=== PATIENT | male | born 1955 | race Caucasian/White ===

== ENCOUNTER 2017-02-09 10:25 | Emergency (ER) | payer BC ==
[2017-02-09 10:45] VITALS: BP 141/71
--- NOTE | 2017-02-09 11:22 | EDM.PDOC ---
ED HPI GENERAL MEDICAL PROBLEM - General Chief Complaint: Back Pain or Injury Stated Complaint: LEFT SIDE KIDNEY PAIN Time Seen by Provider: 02/09/17 10:50 Source of Information: Reports: Patient History Limitations: Reports: No Limitations - History of Present Illness INITIAL COMMENTS - FREE TEXT/NARRATIVE: 61-year-old male presents to the emergency room complaints of left upper quadrant radiating to his left flank. Patient reports pain started on Saturday. Notes that is more of a ache and will occasionally get sharp pain. It radiates to his left flank. Symptoms were recurring and would wax and wane. He had some mild nausea yesterday, denies vomiting. Denies any difficulties voiding or bowel movement. He is not had any dysuria, hematuria. No dark or bloody stools. States that he took an oxycodone last night that he had left over from his previous heart surgery bypass last year. He is not had any further problems and denies any chest pain,shortness of breath, palpitations, diaphoresis. 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 He has had a similar episode of this left upper quadrant and flank pain after his double bypass surgery 1 year ago. He has not had any recurrence. He feels at this left upper quadrant pain is worse that it is been compared to the past. He rates his pain a 5 out of 10. He is not requesting any pain medication which was offered for him. He is not currently having any nausea. He denies any fevers, but felt a little chilled yesterday. He denies feeling chilled today. Onset: Gradual Onset Date: 02/06/17 Duration: Getting Worse, Recurring Location: Reports: Abdomen, Radiates to (left flank) Quality: Reports: Ache Severity: Moderate Worsens with: Reports: None Associated Symptoms: Reports: Loss of Appetite, Nausea/Vomiting (denies vomiting , nausea yesterday). Denies: Chest Pain, Diaphoresis, Fever/Chills, Shortness of Breath, Weakness Treatments [employer]: Reports: Other (see below) (oxycodone) Left Back Pain Score (Numeric/FACES): 5 - Related Data Allergies Allergy/AdvReac Type Severity Reaction Status Date / Time No Known Drug Allergies Allergy Cannot Verified 02/09/17 10:38 Remember Home Meds: Home Meds Aspirin [Halfprin] 81 mg PO BEDTIME 10/18/14 [History] Escitalopram [Lexapro] 20 mg PO DAILY 10/18/14 [History] Gabapentin 100 mg PO BID 10/18/14 [History] Gabapentin 300 mg PO BEDTIME 10/18/14 [History] Insulin Aspart [NovoLOG] 13 unit SUBCUT TIDAC 10/18/14 [History] Insulin Glarg,Human.Rec.Analog [LantUS Solostar] 46 unit SUBCUT BEDTIME [History] Lisinopril 10 mg PO DAILY 10/18/14 [History] Lovastatin 20 mg PO BEDTIME 10/18/14 [History] Niacin [Niacin ER] 1,000 mg PO BEDTIME 10/18/14 [History] Niacin [Niacin ER] 500 mg PO DAILY 10/18/14 [History] Omeprazole 20 mg PO DAILY 10/18/14 [History] metFORMIN [Glucophage] 1,000 mg PO ACBREAKFAST 10/18/14 [History] metFORMIN [Glucophage] 1,500 mg PO ACDINNER 10/18/14 [History] Ferrous Sulfate [Iron] 325 mg PO BID 05/31/15 [History] Omeprazole 20 mg PO DAILY 05/31/15 [History] Metoprolol Tartrate 12.5 mg PO BID 02/09/17 [History] Past Medical History HEENT History: Reports: Impaired Vision Cardiovascular History: Reports: Bypass, High Cholesterol, Hypertension Gastrointestinal History: Reports: Colon Polyp Musculoskeletal History: Reports: Back Pain, Chronic, Fracture Other Musculoskeletal History: Collar bone fx, left foot fx. Psychiatric History: Reports: Depression Endocrine/Metabolic History: Reports: Diabetes, Type II Other Endocrine/Metabolic History: tumor removed from adreanal gland. Hematologic History: Reports: Anemia - Infectious Disease History Infectious Disease History: Reports: Chicken Pox, Measles, Mumps - Past Surgical History Cardiovascular Surgical History: Reports: Coronary Artery Bypass GI Surgical History: Reports: Cholecystectomy, Colonoscopy, Hernia Repair/Other Social & Family History - Family History Cardiac: Reports: [place] Oncologic: Reports: Liver - Tobacco Use Smoking Status *Q: Never Smoker Second Hand Smoke Exposure: Yes - Recreational Drug Use Recreational Drug Use: No ED ROS GENERAL - Review of Systems Review Of Systems: See Below Constitutional: Reports: Chills (last night), Decreased Appetite. Denies: Fever , Diaphoresis, Weight Loss HEENT: Reports: Other (corrective lenses) Respiratory: Denies: Shortness of Breath, Pleuritic Chest Pain, Sputum, Hemoptysis Cardiovascular: Reports: Edema (legs when standing on concrete at work). Denies : Chest Pain, Dyspnea on Exertion Endocrine: Reports: Other (denies hematuria) GI/Abdominal: Reports: Abdominal Pain, Anorexia, Nausea. Denies: Black Stool, Bloody Stool, Constipation, Diarrhea, Hematemesis, Stool Incontinence, Vomiting : Reports: Flank Pain. Denies: Dysuria, Hematuria, Incontinence, Urinary Retention Musculoskeletal: Denies: Shoulder Pain, Arm Pain, Back Pain, Leg Pain Skin: Denies: Cyanosis, Diaphoresis, Bruising, Pruritis, Rash Neurological: Denies: Confusion, Dizziness, Headache, Trouble Speaking, Difficulty Walking, Change in Speech, Gait Disturbance Hematologic/Lymphatic: Reports: No Symptoms Immunologic: Reports: No Symptoms ED EXAM, RENAL/ - Physical Exam Exam: See Below Exam Limited By: No Limitations General Appearance: Alert, WD/WN, No Apparent Distress, Obese (abdominal) Eye Exam: Bilateral Eye: EOMI Nose: Normal Inspection Throat/Mouth: Normal Inspection, Normal Lips, Normal Teeth, Normal Oropharynx, Normal Voice, No Airway Compromise Head: Atraumatic, Normocephalic Neck: Normal Inspection, Supple, Non-Tender, Full Range of Motion. No: Carotid Bruit, Lymphadenopathy (L), Lymphadenopathy (R) Respiratory/Chest: No Respiratory Distress, Lungs Clear, Normal Breath Sounds, No Accessory Muscle Use, Chest Non-Tender Cardiovascular: No Edema, No JVD, No Murmur, Irregularly Irregular GI/Abdominal: Normal Bowel Sounds, No Abnormal Bruit, No Mass, Pelvis Stable, Tender (Left Upper and lower Quadrant). No: Guarding, Rigid, Rebound, Hepatomegaly Back Exam: Normal Inspection, Full Range of Motion. No: Paraspinal Tenderness, Vertebral Tenderness Extremities: Normal Inspection, Normal Range of Motion, No Pedal Edema, Normal Capillary Refill Neurological: Alert, Oriented, Normal Cognition, No Motor/Sensory Deficits Psychiatric: Normal Affect, Normal Mood Skin Exam: Warm, Dry, Intact, Normal Color, No Rash Lymphatic: No Adenopathy EKG INTERPRETATION EKG Date: 02/09/17 Time: 13:17 Rhythm: Other (Sinus rhythm with marked sinus arrhythmia) Rate (Beats/Min): 64 QRS: Normal ST-T: Normal QT: Normal Comparison: Other: (sinus bradycardia with marked sinus arrhythmia) EKG Interpretation Comments: Sinus rhythm with marked sinus arrhythmia Inferior infarct, age undetermined Cannot rule out anterior infarct age undetermined Abnormal ECG Course - Vital Signs Last Recorded V/S: Last Vital Signs Temp 98.0 F 02/09/17 10:42 Pulse 61 02/09/17 10:42 Resp 20 02/09/17 10:42 BP 141/71 H 02/09/17 10:44 Pulse Ox 97 02/09/17 10:42 - Orders/Labs/Meds Orders: Active Orders 24 hr Category Date Time Status EKG Documentation Completion [RC] ASDIRECTED Care 02/09/17 12:08 Active Abdomen Pelvis w Cont [CT] Stat Exams 02/09/17 11:23 Taken Sodium Chloride 0.9% [Normal Saline] Med 02/09/17 12:45 Active 50 ml FLUSH ASDIRECTED EKG 12 Lead [EK] Routine Ther 02/09/17 12:07 Ordered Medication Orders Sodium Chloride (Normal Saline) 50 ml FLUSH ASDIRECTED MALENA Labs: Laboratory Tests 02/09/17 02/09/17 02/09/17 Range/Units 11:33 11:33 11:33 WBC 5.6 (5.0-10.0) 10^3/uL RBC 4.69 (4.50-6.00) 10^6/uL Hgb 14.8 (13.0-17.0) g/dL Hct 46.6 (40.0-52.0) % MCV 99.5 H (82.0-92.0) fL MCH 31.5 H (27.0-31.0) pg MCHC 31.7 L (32.0-36.0) g/dL RDW 12.8 (11.5-14.5) % Plt Count 186 (150-300) 10^3/uL MPV 7.1 L (7.4-10.4) fL Neut % (Auto) 69.6 (50.0-70.0) % Lymph % (Auto) 17.5 L (20.0-40.0) % [place] % (Auto) 8.4 H (2.0-8.0) % Eos % (Auto) 4.0 H (1.0-3.0) % Baso % (Auto) 0.5 (0.0-1.0) % Neut # (Auto) 3.9 (2.5-7.0) 10^3/uL Lymph # (Auto) 1.0 (1.0-4.0) 10^3/uL [place] # (Auto) 0.5 (0.1-0.8) 10^3/uL Eos # (Auto) 0.2 (0.1-0.3) 10^3/uL Baso # (Auto) 0.0 (0.0-0.1) 10^3/uL Sodium 138 (136-145) mmol/L Potassium 4.3 (3.3-5.3) mmol/L Chloride 102 (98-115) mmol/L Carbon Dioxide 25.6 (21.0-32.0) mmol/L BUN 16 (6-25) mg/dL Creatinine 0.98 (0.51-1.17) mg/dL Est Cr Clr Drug Dosing 79.16 mL/min Estimated GFR (MDRD) > 60 mL/min Glucose 148 H (70-110) mg/dL Calcium 9.2 (8.7-10.3) mg/dL Total Bilirubin 0.8 (0.2-1.0) mg/dL AST 20 (15-37) U/L ALT 27 (12-78) U/L Alkaline Phosphatase 66 (46-116) IU/L Troponin I < 0.04 (0.00-0.070) ng/mL Total Protein 8.1 (6.4-8.2) g/dL Albumin 3.67 (3.00-4.80) g/dL Amylase 53 (25-125) U/L Lipase 98 (73-393) U/L Specimen Type Urine Color (YELLOW) Urine Appearance (CLEAR) Urine pH (5.0-9.0) Ur Specific [place] (1.005-1.030) Urine Protein (NEGATIVE) mg/dL Urine Glucose (UA) (NEGATIVE) mg/dL Urine Ketones (NEGATIVE) mg/dL Urine Occult Blood (NEGATIVE) Urine Nitrite (NEGATIVE) Urine Bilirubin (NEGATIVE) Urine Urobilinogen (0.2-1.0) E.U./dL Ur Leukocyte Esterase (NEGATIVE) Urine RBC /HPF Urine WBC /HPF Ur Epithelial Cells /LPF Urine Bacteria (NONE TO FEW) /HPF Urine Mucus (NEGATIVE) /LPF 02/09/17 Range/Units 13:00 WBC (5.0-10.0) 10^3/uL RBC (4.50-6.00) 10^6/uL Hgb (13.0-17.0) g/dL Hct (40.0-52.0) % MCV (82.0-92.0) fL MCH (27.0-31.0) pg MCHC (32.0-36.0) g/dL RDW (11.5-14.5) % Plt Count (150-300) 10^3/uL MPV (7.4-10.4) fL Neut % (Auto) (50.0-70.0) % Lymph % (Auto) (20.0-40.0) % [place] % (Auto) (2.0-8.0) % Eos % (Auto) (1.0-3.0) % Baso % (Auto) (0.0-1.0) % Neut # (Auto) (2.5-7.0) 10^3/uL Lymph # (Auto) (1.0-4.0) 10^3/uL [place] # (Auto) (0.1-0.8) 10^3/uL Eos # (Auto) (0.1-0.3) 10^3/uL Baso # (Auto) (0.0-0.1) 10^3/uL Sodium (136-145) mmol/L Potassium (3.3-5.3) mmol/L Chloride (98-115) mmol/L Carbon Dioxide (21.0-32.0) mmol/L BUN (6-25) mg/dL Creatinine (0.51-1.17) mg/dL Est Cr Clr Drug Dosing mL/min Estimated GFR (MDRD) mL/min Glucose (70-110) mg/dL Calcium (8.7-10.3) mg/dL Total Bilirubin (0.2-1.0) mg/dL AST (15-37) U/L ALT (12-78) U/L Alkaline Phosphatase (46-116) IU/L Troponin I (0.00-0.070) ng/mL Total Protein (6.4-8.2) g/dL Albumin (3.00-4.80) g/dL Amylase (25-125) U/L Lipase (73-393) U/L Specimen Type Urincc Urine Color Yellow (YELLOW) Urine Appearance Clear (CLEAR) Urine pH 5.5 (5.0-9.0) Ur Specific [place] 1.015 (1.005-1.030) Urine Protein Negative (NEGATIVE) mg/dL Urine Glucose (UA) Negative (NEGATIVE) mg/dL Urine Ketones Trace H (NEGATIVE) mg/dL Urine Occult Blood Negative (NEGATIVE) Urine Nitrite Negative (NEGATIVE) Urine Bilirubin Negative (NEGATIVE) Urine Urobilinogen 0.2 (0.2-1.0) E.U./dL Ur Leukocyte Esterase Negative (NEGATIVE) Urine RBC 0-5 /HPF Urine WBC 0-5 /HPF Ur Epithelial Cells Rare /LPF Urine Bacteria Not seen (NONE TO FEW) /HPF Urine Mucus Rare H (NEGATIVE) /LPF Meds: Medications Generic Name Dose Route Start Last Admin Trade Name Freq PRN Reason Stop Dose Admin Sodium Chloride 50 ml 02/09/17 12:45 Normal Saline FLUSH ASDIRECTED MALENA Discontinued Medications Generic Name Dose Route Start Last Admin Trade Name Freq PRN Reason Stop Dose Admin Aspirin 324 mg 02/09/17 12:15 02/09/17 12:22 Aspirin PO 02/09/17 12:16 324 mg ONETIME ONE Administration Iopamidol 75 ml 02/09/17 12:38 Isovue-300 (61%) IV 02/09/17 12:39 ONETIME ONE - Re-Assessments/Exams Free Text/Narrative Re-Assessment/Exam: 02/09/17 13:54 Patient states that he feels much better his pain has improved. He now rates his pain mild rating it 3 out of 10. He is drinking water without any discomfort. Reports no nausea. No pain with ambulation. Departure - Departure Time of Disposition: 13:55 Disposition: Home, Self-Care 01 Condition: Good Clinical Impression: BPH (benign prostatic hyperplasia) Abdominal pain Qualifiers: Abdominal location: left upper quadrant Qualified Code(s): R10.12 - Left upper quadrant pain - Discharge Information Instructions: Benign Prostatic Hyperplasia, Abdominal Pain, Adult, [id number] Referrals: Aranza Henderson MD [Primary Care Provider] - Forms: ED Department Discharge Additional Instructions: 1. [place] diet. Avoid spicy, fatty foods. 2. Rest over the weekend 3. Continue with oral hydration. 4. Follow-up with Dr. Aranza Lora next week. - My Orders Last 24 Hours: My Active Orders 02/09/17 11:23 Abdomen Pelvis w Cont [CT] Stat 02/09/17 12:07 EKG 12 Lead [EK] Routine 02/09/17 12:08 EKG Documentation Completion [RC] ASDIRECTED 02/09/17 12:45 Sodium Chloride 0.9% [Normal Saline] 50 ml FLUSH ASDIRECTED - Assessment/Plan Last 24 Hours: My Active Orders 02/09/17 11:23 Abdomen Pelvis w Cont [CT] Stat 02/09/17 12:07 EKG 12 Lead [EK] Routine 02/09/17 12:08 EKG Documentation Completion [RC] ASDIRECTED 02/09/17 12:45 Sodium Chloride 0.9% [Normal Saline] 50 ml FLUSH ASDIRECTED Assessment:: 1. Abdominal pain 2. BPH Plan: 1. [place] diet. Avoid spicy, fatty foods. 2. Rest over the weekend 3. Continue with oral hydration. 4. Follow-up with Dr. Aranza Lora next week.
[2017-02-09 12:01] LABS: CHLORIDE,CL 102 mmol/L (98-115); SODIUM,NA 138 mmol/L (136-145)
[2017-02-09] MEDS ORDERED: Aspirin 81 MG Tab.Chew PO ONE (12:15)
[2017-02-09] MEDS ORDERED: Iopamidol 612 MG/ML 75 ML Bottle IV ONE (12:38)
[2017-02-09] MEDS ORDERED: Sodium Chloride 0.9% 50 ML SDV FLUSH SCH (12:45)
== END 2017-02-09 14:07 | disposition home or self-care (01) ==
LOC: KA.ED 10:25
DX: N40.0 Benign prostatic hyperplasia without lower urinary tract symptoms (principal); N32.89 Other specified disorders of bladder; R10.12 Left upper quadrant pain; I10 Essential (primary) hypertension; E78.00 Pure hypercholesterolemia, unspecified; E11.9 Type 2 diabetes mellitus without complications; Z79.4 Long term (current) use of insulin; Z79.82 Long term (current) use of aspirin; Z79.899 Other long term (current) drug therapy; Z90.49 Acquired absence of other specified parts of digestive tract; Z98.890 Other specified postprocedural states
CPT/HCPCS: 36415; 74177; 80053; 81001; 82150; 83690; 84484; 85025; 93005; 99284; A9270; Q9967

== ENCOUNTER 2018-12-09 08:24 | Day surgery (SDC) | payer BC ==
[2018-12-09] MEDS ORDERED: Sodium Chloride 0.9% 1,000 ML IV SCH (08:30)
[2018-12-09] MEDS ORDERED: Sodium Chloride 0.9% 10 ML Syringe FLUSH PRN (08:30)
[2018-12-09] MEDS ORDERED: Midazolam 1 MG/ML 2 ML SDV ONE (08:45)
[2018-12-09] MEDS ORDERED: Propofol 200 MG/20 ML SDV ONE ×2 (08:46→08:58)
[2018-12-09] MEDS ORDERED: Propofol 200 MG/20 ML SDV IV ONE (09:46)
[2018-12-09] MEDS ORDERED: Midazolam 1 MG/ML 2 ML SDV IV ONE (09:46)
--- NOTE | 2018-12-09 09:49 | PCM.PN ---
- General Info Date of Service: 12/09/18 Admission Dx/Problem (Free Text): Patient with history of colon polyps here for follow up colonoscopy. His last colonoscopy was 3 years ago. He notes occasional slight rectal bleeding although this is improved since he had hemorrhoid banding. He also notes mild symptoms of diarrhea associated with his diabetes. His recent history and physical is reviewed. No significant changes are noted compared to that evaluation. - Review of Systems Systems Review Comment:: I have discussed the proposed colonoscopy with the patient. Risks such as but not limited to bleeding and GI injury reviewed. He agrees to proceed. - Patient Data Vitals - Most Recent: Last Vital Signs Temp 97.7 F 12/09/18 08:30 Pulse 81 12/09/18 08:30 Resp 18 12/09/18 08:30 BP 135/89 12/09/18 08:30 Pulse Ox 98 12/09/18 08:30 Weight - Most Recent: 107.501 kg Med Orders - Current: Current Medications Sodium Chloride (Normal Saline) 1,000 mls @ 50 mls/hr IV ASDIRECTED MALENA Sodium Chloride (Saline Flush) 10 ml FLUSH Q8HR PRN PRN Reason: keep vein open - Exam General: Alert, Oriented Lungs: Clear to Auscultation Cardiovascular: Regular Rate, Regular Rhythm GI/Abdominal Exam: Soft - Problem List Review Problem List Initiated/Reviewed/Updated: Yes - My Orders Last 24 Hours: My Active Orders 12/08/18 14:11 Resuscitation Status Routine 12/09/18 08:30 Blood Glucose Check, Bedside [RC] BIDMEALS Peripheral IV Care [RC] . DIRECTED Vital Signs [RC] PER UNIT ROUTINE Sodium Chloride 0.9% [Normal Saline] 1,000 ml IV ASDIRECTED Sodium Chloride 0.9% [Saline Flush] 10 ml FLUSH Q8HR PRN Peripheral IV Insertion Adult [OM.PC] Routine 12/09/18 09:00 Patient to Empty Bladder [RC] ASDIRECTED 12/09/18 09:45 Verify Patient Consent Obtain [RC] ASDIRECTED 12/09/18 Breakfast Nothing Per Oral Diet [DIET] - Assessment Assessment:: History of colon polyps Diabetes History of coronary artery disease - Plan Plan:: Colonoscopy
--- NOTE | 2018-12-09 10:25 | PCM.OPNOTE ---
- General Post-Op/Procedure Note Date of Surgery/Procedure: 12/09/18 Operative Procedure(s): Colonoscopy Findings: Internal Hemorrhoids Pre Op Diagnosis: History of colon polyps Post-Op Diagnosis: Hemorrhoids Anesthesia Technique: MAC Primary Surgeon: Miller Phillips Pathology: none Output, Urine Amount: 0 EBL in mLs: 0 Complications: None Condition: Good
[2018-12-09 14:36] VITALS: BP 144/78; PULSE 70
--- NOTE | 2018-12-09 15:45 | OR ---
DATE OF SURGERY: 12/09/2018 SURGEON: Miller Phillips MD PREOPERATIVE DIAGNOSIS: History of colon polyps. POSTOPERATIVE DIAGNOSIS: Internal hemorrhoids. OPERATION PERFORMED: Colonoscopy. INDICATIONS FOR SURGERY: This 63-year-old male has a known history of colon polyps. He comes today for surveillance colonoscopy. FINDINGS: No polyps were seen on today's exam. The colon although tortuous otherwise appeared normal. The patient did have a moderate sized internal hemorrhoids although no active bleeding was seen today. PROCEDURE: The patient was taken to the operating room. He was given intravenous sedation and with him in the left lateral decubitus position, digital rectal exam was performed showing no rectal masses. The Olympus colonoscope was inserted into the rectum. Retroflexed examination of the rectal canal is performed. The scope was then carefully advanced under direct visualization through the entire length of the colon until the cecum was reached. The patient's colon was somewhat tortuous and reaching the cecum did require hand pressure as well as by rotating the patient to the supine position, but with careful persistent manipulation, the cecum is able to be reached and I clearly examined. Cecal identity is confirmed by noting normal internal cecal anatomy including the appendiceal orifice and ileocecal valve. After examining the cecum, the scope was slowly withdrawn, sequentially re-examining the colonic segments until the entire colon and rectum had been fully examined. The scope was removed and the patient was taken from the operating room in satisfactory condition. ESTIMATED BLOOD LOSS: Zero. COMPLICATIONS: None. PROGNOSIS: Good. /[id number]/MODL
== END 2018-12-09 11:40 | disposition home or self-care (01) ==
LOC: KA.SDS 08:24
PROVIDERS: ATTEND Surgery
DX: Z12.11 Encounter for screening for malignant neoplasm of colon (principal); K64.8 Other hemorrhoids; Q43.8 Other specified congenital malformations of intestine; K21.9 Gastro-esophageal reflux disease without esophagitis; I25.10 Atherosclerotic heart disease of native coronary artery without angina pectoris; E11.9 Type 2 diabetes mellitus without complications; E78.00 Pure hypercholesterolemia, unspecified; I10 Essential (primary) hypertension; F41.9 Anxiety disorder, unspecified; F32.9 Major depressive disorder, single episode, unspecified; Z86.010 Personal history of colon polyps; Z79.899 Other long term (current) drug therapy; Z79.82 Long term (current) use of aspirin; Z79.84 Long term (current) use of oral hypoglycemic drugs
CPT/HCPCS: 45378; 82962; J2250; J2704

== ENCOUNTER 2019-04-14 07:47 | Day surgery (SDC) | payer BC ==
[2019-04-14] MEDS ORDERED: Propofol 200 MG/20 ML SDV IV ONE (07:48)
[2019-04-14] MEDS ORDERED: Ketamine 200 MG/20 ML MDV IV ONE (07:48)
[2019-04-14] MEDS ORDERED: Lidocaine 2% 5 ML SDV IV ONE (07:48)
[2019-04-14] MEDS ORDERED: Midazolam 1 MG/ML 2 ML SDV IV ONE (07:48)
[2019-04-14] MEDS ORDERED: Sodium Chloride 0.9% 10 ML Syringe FLUSH PRN (08:00)
[2019-04-14] MEDS ORDERED: Sodium Chloride 0.9% 1,000 ML IV SCH (08:00)
[2019-04-14] MEDS ORDERED: Midazolam 1 MG/ML 2 ML SDV ONE (09:17)
[2019-04-14] MEDS ORDERED: Propofol 200 MG/20 ML SDV ONE (09:17)
[2019-04-14] MEDS ORDERED: Ketamine 200 MG/20 ML MDV ONE (09:18)
[2019-04-14] MEDS ORDERED: Lidocaine 2% 5 ML SDV ONE (09:18)
--- NOTE | 2019-04-14 09:31 | PCM.PN ---
- General Info Date of Service: 04/14/19 - Review of Systems Systems Review Comment:: 64 y/o male with symptoms of diarrhea, and upper abdominal pain despite taking Omeprazole here for EGD. He did have abnormal recent stress test but has been medically cleared for EGD. I have discussed the proposed EGD with the patient. He agrees to proceed accepting risks. - Patient Data Vitals - Most Recent: Last Vital Signs Temp 96.9 F 04/14/19 07:59 Pulse 64 04/14/19 07:59 Resp 18 04/14/19 07:59 BP 160/96 H 04/14/19 07:59 Pulse Ox 98 04/14/19 07:59 Weight - Most Recent: 105.233 kg Med Orders - Current: Current Medications Sodium Chloride (Normal Saline) 1,000 mls @ 50 mls/hr IV ASDIRECTED MALENA Last Admin: 04/14/19 08:21 Dose: 50 mls/hr Sodium Chloride (Saline Flush) 10 ml FLUSH Q8HR PRN PRN Reason: keep vein open Discontinued Medications Ketamine HCl (Ketalar) Confirm Administered Dose 200 mg .ROUTE .STK-MED ONE Stop: 04/14/19 09:19 Lidocaine (Xylocaine-Mpf 2%) Confirm Administered Dose 5 ml .ROUTE .STK-MED ONE Stop: 04/14/19 09:19 Midazolam HCl (Versed 1 Mg/Ml) Confirm Administered Dose 2 mg .ROUTE .STK-MED ONE Stop: 04/14/19 09:18 Propofol (Diprivan 20 Ml) Confirm Administered Dose 200 mg .ROUTE .STK-MED ONE Stop: 04/14/19 09:18 Sepsis Event Note - Focused Exam Vital Signs: Vital Signs Temp Pulse Resp BP Pulse Ox 04/14/19 07:59 96.9 F 64 18 160/96 H 98 Date Exam was Performed: 04/14/19 Time Exam was Performed: 09:29 - Problem List Review Problem List Initiated/Reviewed/Updated: Yes - My Orders Last 24 Hours: My Active Orders 04/13/19 14:54 Resuscitation Status Routine 04/14/19 08:00 Blood Glucose Check, Bedside [RC] UPON Patient to Empty Bladder [RC] ASDIRECTED Sodium Chloride 0.9% [Normal Saline] 1,000 ml IV ASDIRECTED Sodium Chloride 0.9% [Saline Flush] 10 ml FLUSH Q8HR PRN Peripheral IV Insertion Adult [OM.PC] Routine 04/14/19 09:00 Verify Patient Consent Obtain [RC] ASDIRECTED 04/14/19 Breakfast Nothing Per Oral Diet [DIET] - Assessment Assessment:: Diarrhea and abdominal pain - Plan Plan:: EGD
--- NOTE | 2019-04-14 10:00 | PCM.OPNOTE ---
- General Post-Op/Procedure Note Date of Surgery/Procedure: 04/14/19 Operative Procedure(s): EGD with Biopsy Findings: Mild inflammation at GE Jct Benign appearing polyps in gastric body Otherwise normal appearing gastric and duodenal mucosa Pre Op Diagnosis: Dairrhea. Abdominal pain Post-Op Diagnosis: Reflux esophagitis. Gastric polyps Anesthesia Technique: MAC Primary Surgeon: Miller Phillips Pathology: Biopsies of duodenum, stomach and esophagus EBL in mLs: 5 Complications: None Condition: Good
--- NOTE | 2019-04-14 11:06 | OR ---
DATE OF SURGERY: 04/14/2019 SURGEON: Miller Phillips MD PREOPERATIVE DIAGNOSIS: Diarrhea and history of abdominal pain. POSTOPERATIVE DIAGNOSIS: Reflux esophagitis and gastric polyps. OPERATION PERFORMED: Esophagogastroduodenoscopy with biopsy. INDICATIONS FOR SURGERY: This 64-year-old male has a history of several months of diarrhea. He has also had some abdominal pain. He is referred for diagnostic upper endoscopy. FINDINGS: No ulcers are seen on today's exam. The gastric mucosa does have a few benign-appearing polyps in the gastric body. Epigastric mucosa otherwise appears normal without visible signs of inflammation or other pathology. The Z- line is distinct with only mild irregularity approximately 40 cm from the incisors. There is mild inflammatory changes at the Z-line, but no exudate or severe inflammation is seen. The lining of the duodenum appears normal. DESCRIPTION OF PROCEDURE: The patient was taken to the operating room. He was given intravenous sedation and his throat is topically anesthetized. The patient was given intravenous sedation and with him in the left lateral decubitus position the gastroscope was advanced into the mouth through the mouth guard. The scope was then carefully advanced into the esophagus and on down through the stomach and duodenum to the 4th portion. Careful examination of the duodenum was carried out and no visible abnormalities were seen. Random biopsies of the of the duodenum are taken because of his history of diarrhea. The scope was withdrawn back into the stomach where full examination including retroflexed examination of the fundus was performed. Random biopsies of the antrum were taken to rule out H pylori. There were some benign-appearing polyps, most consistent with fundic gland polyps noted in the gastric body. Random biopsies of these were taken to confirm them being benign. The retroflexed examination of the fundus and GE junction was carefully examined. Biopsies of the GE junction were taken as well. The scope was then removed. Re- examining the esophagus during scope withdrawal and after the procedure was completed, the scope was removed and the patient was taken from the operating room in satisfactory condition. ESTIMATED BLOOD LOSS: 5 mL. COMPLICATIONS: None. PROGNOSIS: Good. /[id number]/MODL
[2019-04-14] MEDS ORDERED: Metoprolol Tartrate 25 MG Tab PO SCH (11:30)
[2019-04-14] MEDS ORDERED: Lisinopril 5 MG Tab PO SCH (11:30)
[2019-04-14] MEDS ORDERED: Metoprolol Tartrate 5 MG/5 ML SDV IVPUSH SCH (12:38)
[2019-04-14 13:01] VITALS: PULSE 68
[2019-04-14 13:27] VITALS: BP 160/96
== END 2019-04-14 14:16 | disposition home or self-care (01) ==
LOC: KA.SDS 07:47
PROVIDERS: ATTEND Surgery
DX: K31.7 Polyp of stomach and duodenum (principal); K21.0 Gastro-esophageal reflux disease with esophagitis; E11.42 Type 2 diabetes mellitus with diabetic polyneuropathy; I25.10 Atherosclerotic heart disease of native coronary artery without angina pectoris; G47.33 Obstructive sleep apnea (adult) (pediatric); F41.9 Anxiety disorder, unspecified; Z79.82 Long term (current) use of aspirin; Z79.4 Long term (current) use of insulin; Z79.899 Other long term (current) drug therapy; Z86.010 Personal history of colon polyps; Z87.11 Personal history of peptic ulcer disease; Z95.1 Presence of aortocoronary bypass graft; Z99.89 Dependence on other enabling machines and devices
CPT/HCPCS: 82962; A9270-GY; J2001; J2250; J2704; J3490; J7030

== ENCOUNTER 2020-02-05 12:41 | Emergency (ER) | payer BC ==
[2020-02-05] MEDS ORDERED: Sodium Chloride 0.9% 10 ML Syringe FLUSH PRN (12:47)
[2020-02-05] MEDS ORDERED: Sodium Chloride 0.9% 1,000 ML IV SCH ×2 (13:00→14:45)
--- NOTE | 2020-02-05 13:14 | EDM.PDOC ---
ED HPI GENERAL MEDICAL PROBLEM - General Chief Complaint: Gastrointestinal Problem Stated Complaint: COVID + Time Seen by Provider: 02/05/20 12:45 Source of Information: Reports: Patient - History of Present Illness INITIAL COMMENTS - FREE TEXT/NARRATIVE: Nelson, 64 yo male, arrives per pedis to ED Covid 19 positive test result yesterday, 03 February. Test performed Saturday. Increase of symptoms since Saturday. Claims mild symptoms over the past week. Has noted poor intake with variation in his taste and no appetite. Has had increased weakness, nausea, fatigue with dizziness and near syncope. Denies falling. Chest pressure with deep breathing, but no full onset of SOB. Minimal cough, no specific shortness of breath. Diarrhea with intake, positioning worsens the dizziness with near resolution when supine of both dizziness as well as his nausea. Onset: Today Duration: Getting Worse Location: Reports: Head, Chest Headache Pain Score (Numeric/FACES): 5 - Related Data Allergies Allergy/AdvReac Type Severity Reaction Status Date / Time No Known Drug Allergies Allergy Cannot Verified 02/05/20 13:27 Remember Home Meds: Home Meds Aspirin [Halfprin] 81 mg PO BID 10/18/14 [History] Escitalopram [Lexapro] 10 mg PO DAILY 10/18/14 [History] Gabapentin 300 mg PO TID 10/18/14 [History] Insulin Aspart [NovoLOG] 15 unit SUBCUT ASDIRECTED 10/18/14 [History] Lovastatin 20 mg PO BEDTIME 10/18/14 [History] Niacin [Niacin ER] 1,000 mg PO BEDTIME 10/18/14 [History] Niacin [Niacin ER] 500 mg PO DAILY 10/18/14 [History] Omeprazole 20 mg PO DAILY 10/18/14 [History] Ferrous Sulfate [Iron] 324 mg PO DAILY 05/31/15 [History] Metoprolol Tartrate 12.5 mg PO BID 02/09/17 [History] Acetaminophen [Tylenol] 650 mg PO Q4H PRN 12/05/18 [History] Insulin Degludec [Tresiba] 60 unit SQ DAILY 12/05/18 [History] ALPRAZolam [Alprazolam] 0.25 mg PO TID PRN 04/13/19 [History] Hydrocodone/Acetaminophen [Hydrocodone-Acetamin 5-325 mg] 1 tab PO Q6H PRN 04/13/19 [History] allopurinoL [Zyloprim] 300 mg PO DAILY 04/13/19 [History] lisinopriL [Zestril] 2.5 mg PO DAILY 04/13/19 [History] Isosorbide Mononitrate [Imdur] 30 mg PO DAILY 02/05/20 [History] Ondansetron [Ondansetron ODT] 8 mg PO Q6H PRN 5 Days #20 tab.rapdis 02/05/20 [Rx] buPROPion HCL [Bupropion Xl] 150 mg PO DAILY 02/05/20 [History] Past Medical History HEENT History: Reports: Impaired Vision Cardiovascular History: Reports: Bypass, CAD, High Cholesterol, Hypertension, PVD, SOB on Exertion Respiratory History: Reports: Sleep Apnea Gastrointestinal History: Reports: Colon Polyp, Hemorrhoids, Other (See Below) Other Gastrointestinal History: stomach ulcer. pre cancerous polyps removed Genitourinary History: Reports: BPH Musculoskeletal History: Reports: Back Pain, Chronic, Fracture, Gout Other Musculoskeletal History: Collar bone fx, left foot fx. 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 Hematologic History: Reports: Anemia Immunologic History: Reports: None Oncologic (Cancer) History: Reports: None Dermatologic History: Reports: None - Infectious Disease History Infectious Disease History: Reports: Chicken Pox, Measles, Mumps - Past Surgical History HEENT Surgical History: Reports: Oral Surgery Cardiovascular Surgical History: Reports: Coronary Artery Bypass, Vascular Surgery Respiratory Surgical History: Reports: None GI Surgical History: Reports: Cholecystectomy, Colonoscopy, EGD, Hernia Repair/Other Male Surgical History: Reports: Vasectomy Endocrine Surgical History: Reports: Adrenal Gland Other Endocrine Surgeries/Procedures: 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 ED EXAM, GENERAL - Physical Exam Exam: See Below Free Text/Narrative:: Alert, oriented, with mild pallor. HEENT is negative discharge or deformity, there is cerumen in the canals but tympanic membranes are visible and normal in appearance. [place] moist mucous membranes with no erythema nor exudate. PERRLA no icterus no injection extraocular motion intact. No nystagmus induced when placed from seated position to supine. Thorax is overall clear with fine rhonchi at the bases. No wheezes nor crackles are noted. Cardiac is S1-S2 I do not appreciate any murmur. Abdomen has normal active bowel sounds with no tenderness nor irritation to palpation. There is no organomegaly. Lower extremities are free of edema skin is warm and dry. Radial pulse correlates with apical heart rate. Seated positioning from supine does not have significant bearing on his heart rate with his arrival, but does worsen his nausea. #1 Interpretation EKG Date: 02/05/20 Time: 13:04 Rhythm: NSR Rate (Beats/Min): 86 [place]: Normal P-Wave: Present QRS: Normal ST-T: Normal QT: Normal Comparison: No Change Course - Vital Signs Last Recorded V/S: Last Vital Signs Temp 38.8 C H 02/05/20 16:14 Pulse 83 02/05/20 14:00 Resp 18 02/05/20 14:00 BP 165/88 H 02/05/20 14:00 Pulse Ox 100 02/05/20 14:00 - Orders/Labs/Meds Orders: Active Orders 24 hr Category Date Time Status EKG Documentation Completion [RC] ASDIRECTED Care 02/05/20 12:46 Active Peripheral IV Care [RC] . DIRECTED Care 02/05/20 12:47 Active Sodium Chloride 0.9% [Normal Saline] 1,000 ml Med 02/05/20 13:00 Active IV ASDIRECTED Sodium Chloride 0.9% [Normal Saline] 1,000 ml Med 02/05/20 14:45 Active IV ASDIRECTED Sodium Chloride 0.9% [Saline Flush] Med 02/05/20 12:47 Active 10 ml FLUSH Q8HR PRN Peripheral IV Insertion Adult [OM.PC] Routine Oth 02/05/20 12:47 Ordered EKG 12 Lead [EK] Urgent Ther 02/05/20 12:45 Ordered Medication Orders Sodium Chloride (Normal Saline) 1,000 mls @ 999 mls/hr IV ASDIRECTED MALENA Last Admin: 02/05/20 13:16 Dose: 999 mls/hr Documented by: PAULO Sodium Chloride (Normal Saline) 1,000 mls @ 999 mls/hr IV ASDIRECTED MALENA Last Admin: 02/05/20 14:46 Dose: 999 mls/hr Documented by: PAULO Sodium Chloride (Saline Flush) 10 ml FLUSH Q8HR PRN PRN Reason: keep vein open Labs: Laboratory Tests 02/05/20 02/05/20 02/05/20 Range/Units 13:20 13:20 13:20 WBC 5.70 (5.00-10.00) 10^3/uL RBC 4.73 (4.50-6.00) 10^6/uL Hgb 15.5 (13.0-17.0) g/dL Hct 45.4 (40.0-52.0) % MCV 96.0 H (82.0-92.0) fL MCH 32.8 H (27.0-31.0) pg MCHC 34.1 (32.0-36.0) g/dL RDW 12.3 (11.5-14.5) % Plt Count 135 L (150-400) 10^3/uL MPV 9.4 (7.4-10.4) fL Immature Gran % (Auto) 0.2 (0.0-5.0) % Neut % (Auto) 74.8 H (50.0-70.0) % Lymph % (Auto) 15.3 L (20.0-40.0) % [place] % (Auto) 9.5 H (2.0-8.0) % Eos % (Auto) 0.0 L (1.0-3.0) % Baso % (Auto) 0.2 (0.0-1.0) % Neut # (Auto) 4.27 (2.50-7.00) 10^3/uL Lymph # (Auto) 0.87 L (1.00-4.00) 10^3/uL [place] # (Auto) 0.54 (0.10-0.80) 10^3/uL Eos # (Auto) 0.00 L (0.10-0.30) 10^3/uL Baso # (Auto) 0.01 (0.00-0.10) 10^3/uL Immature Gran # (Auto) 0.01 (0.00-0.50) 10^3/uL D-Dimer, Quantitative (<400) ng/mL Sodium 133 L (136-145) mmol/L Potassium 4.2 (3.3-5.3) mmol/L Chloride 95 L (98-115) mmol/L Carbon Dioxide 25.1 (21.0-32.0) mmol/L Anion Gap 17.1 H (5-15) mmol/L BUN 26 H (6-25) mg/dL Creatinine 1.32 H (0.51-1.17) mg/dL Est Cr Clr Drug Dosing 56.54 mL/min Estimated GFR (MDRD) 55 mL/min Glucose 158 H (75 - 99) mg/dL Lactic Acid 1.9 (0.4-2.0) mmol/L Calcium 8.5 L D (8.7-10.3) mg/dL Total Bilirubin 0.5 (0.2-1.0) mg/dL AST 27 (15-37) U/L ALT 24 (12-78) U/L Alkaline Phosphatase 69 (46-116) IU/L Troponin I < 0.04 (0.00-0.070) ng/mL Total Protein 7.5 (6.4-8.2) g/dL Albumin 3.51 (3.00-4.80) g/dL 02/05/20 Range/Units 13:20 WBC (5.00-10.00) 10^3/uL RBC (4.50-6.00) 10^6/uL Hgb (13.0-17.0) g/dL Hct (40.0-52.0) % MCV (82.0-92.0) fL MCH (27.0-31.0) pg MCHC (32.0-36.0) g/dL RDW (11.5-14.5) % Plt Count (150-400) 10^3/uL MPV (7.4-10.4) fL Immature Gran % (Auto) (0.0-5.0) % Neut % (Auto) (50.0-70.0) % Lymph % (Auto) (20.0-40.0) % [place] % (Auto) (2.0-8.0) % Eos % (Auto) (1.0-3.0) % Baso % (Auto) (0.0-1.0) % Neut # (Auto) (2.50-7.00) 10^3/uL Lymph # (Auto) (1.00-4.00) 10^3/uL [place] # (Auto) (0.10-0.80) 10^3/uL Eos # (Auto) (0.10-0.30) 10^3/uL Baso # (Auto) (0.00-0.10) 10^3/uL Immature Gran # (Auto) (0.00-0.50) 10^3/uL D-Dimer, Quantitative < 100 (<400) ng/mL Sodium (136-145) mmol/L Potassium (3.3-5.3) mmol/L Chloride (98-115) mmol/L Carbon Dioxide (21.0-32.0) mmol/L Anion Gap (5-15) mmol/L BUN (6-25) mg/dL Creatinine (0.51-1.17) mg/dL Est Cr Clr Drug Dosing mL/min Estimated GFR (MDRD) mL/min Glucose (75 - 99) mg/dL Lactic Acid (0.4-2.0) mmol/L Calcium (8.7-10.3) mg/dL Total Bilirubin (0.2-1.0) mg/dL AST (15-37) U/L ALT (12-78) U/L Alkaline Phosphatase (46-116) IU/L Troponin I (0.00-0.070) ng/mL Total Protein (6.4-8.2) g/dL Albumin (3.00-4.80) g/dL Meds: Medications Generic Name Dose Route Start Last Admin Trade Name Freq PRN Reason Stop Dose Admin Sodium Chloride 1,000 mls @ 999 mls/hr 02/05/20 13:00 02/05/20 13:16 Normal Saline IV 999 mls/hr ASDIRECTED MALENA Administration Sodium Chloride 1,000 mls @ 999 mls/hr 02/05/20 14:45 02/05/20 14:46 Normal Saline IV 999 mls/hr ASDIRECTED MALENA Administration Sodium Chloride 10 ml 02/05/20 12:47 Saline Flush FLUSH Q8HR PRN keep vein open Discontinued Medications Generic Name Dose Route Start Last Admin Trade Name Hilda PRN Reason Stop Dose Admin Acetaminophen 1,000 mg 02/05/20 16:08 02/05/20 16:14 Tylenol Extra Strength PO 02/05/20 16:09 1,000 mg ONETIME ONE Administration Acetaminophen Confirm 02/05/20 16:09 Tylenol Extra Strength Administered 02/05/20 16:10 Dose 1,000 mg .ROUTE .STK-MED ONE Ondansetron HCl 4 mg 02/05/20 13:15 02/05/20 13:50 Zofran IVPUSH 02/05/20 13:16 4 mg ONETIME ONE Administration - Radiology Interpretation Free Text/Narrative:: X-ray is consistent with viral pneumonia with no acute infiltrate noted. - Re-Assessments/Exams Free Text/Narrative Re-Assessment/Exam: 02/05/20 14:45 Feels slightly improved laying supine, with 1 L of fluid infused at this time. Advised with laboratory findings we would infuse second liter of fluid as tolerated, and would attempt to ambulate thereafter. Free Text/Narrative Re-Assessment/Exam: 02/05/20 16:16 Feels mild improvement, orthostatic vitals show 139/84 with a pulse of 89 supine. 131/82 with a pulse of 93 in a seated position. 148/77 with a pulse of 99 in a standing position, denying dizziness, mild nausea with motion upright. Departure - Departure Time of Disposition: 16:21 Disposition: Home, Self-Care 01 Condition: Fair Clinical Impression: COVID-19 virus detected, Diarrhea due to COVID-19, Diabetes 1.5, managed as type 2, Hyponatremia, Hypochloremia, Creatinine elevation - Discharge Information *PRESCRIPTION DRUG MONITORING PROGRAM REVIEWED*: Not Applicable *COPY OF PRESCRIPTION DRUG MONITORING REPORT IN PATIENT LONNIE: Not Applicable Prescriptions: Ondansetron [Ondansetron ODT] 8 mg PO Q6H PRN 5 Days #20 tab.rapdis PRN Reason: Nausea Instructions: Nausea and Vomiting, Adult, [id number], Diarrhea, Adult, [id number], Prevent the Spread of COVID-19 if You Are Sick - [facility] Referrals: Aranza Henderson MD [Primary Care Provider] - Forms: ED Department Discharge Additional Instructions: Go home, rest, encourage fluids predominantly water or low sugar, low carbohydrate drinks. Prescription at [facility] pharmacy for the Zofran for nausea as needed You need to take it easy, avoid overexerting yourself. Continue all your medications as directed. In the event you develop a fever greater than 103 that does not improve/resolve with Tylenol, consideration for reevaluation could be given. Your laboratory analysis as well as x-ray show that this is still a viral component with no evidence of bacterial infection and it will take time to run its course. Recheck as needed. Sepsis Event Note (ED) - Focused Exam Vital Signs: Vital Signs Temp Temp Pulse Resp BP Pulse Ox 02/05/20 16:14 38.8 C H 02/05/20 14:00 38.6 C H 83 18 165/88 H 100 02/05/20 13:59 167/93 H 02/05/20 13:35 146/66 H 02/05/20 12:46 37.4 C 92 18 125/80 100 - Problem List & Annotations (1) COVID-19 virus detected SNOMED Code(s): 3982594572884437 Code(s): U07.1 - COVID-19 Status: Acute Priority: High Current Visit: Yes (2) Hyponatremia SNOMED Code(s): 29127090 Code(s): E87.1 - HYPO-OSMOLALITY AND HYPONATREMIA Status: Acute Priority: High Current Visit: Yes (3) Hypochloremia SNOMED Code(s): 68329789 Code(s): E87.8 - OTH DISORDERS OF ELECTROLYTE AND FLUID BALANCE, NEC Status: Acute Priority: High Current Visit: Yes (4) Nausea SNOMED Code(s): 690824800 Code(s): R11.0 - NAUSEA Status: Acute Priority: Medium Current Visit: Yes (5) Diarrhea due to COVID-19 SNOMED Code(s): 270070980 Code(s): U07.1 - COVID-19; A08.39 - OTHER VIRAL ENTERITIS Status: Acute Priority: Medium Current Visit: Yes (6) Diabetes 1.5, managed as type 2 SNOMED Code(s): 740860564 Code(s): E13.9 - OTHER SPECIFIED DIABETES MELLITUS WITHOUT COMPLICATIONS Status: Chronic Priority: Medium Current Visit: Yes (7) Creatinine elevation SNOMED Code(s): 999331787 Code(s): R79.89 - OTHER SPECIFIED ABNORMAL FINDINGS OF BLOOD CHEMISTRY Status: Chronic Priority: Medium Current Visit: No - Problem List Review Problem List Initiated/Reviewed/Updated: Yes - My Orders Last 24 Hours: My Active Orders 02/05/20 12:45 EKG 12 Lead [EK] Urgent 02/05/20 12:46 EKG Documentation Completion [RC] ASDIRECTED 02/05/20 12:47 Peripheral IV Care [RC] . DIRECTED Sodium Chloride 0.9% [Saline Flush] 10 ml FLUSH Q8HR PRN Peripheral IV Insertion Adult [OM.PC] Routine 02/05/20 13:00 Sodium Chloride 0.9% [Normal Saline] 1,000 ml IV ASDIRECTED 02/05/20 14:45 Sodium Chloride 0.9% [Normal Saline] 1,000 ml IV ASDIRECTED - Assessment/Plan Last 24 Hours: My Active Orders 02/05/20 12:45 EKG 12 Lead [EK] Urgent 02/05/20 12:46 EKG Documentation Completion [RC] ASDIRECTED 02/05/20 12:47 Peripheral IV Care [RC] . DIRECTED Sodium Chloride 0.9% [Saline Flush] 10 ml FLUSH Q8HR PRN Peripheral IV Insertion Adult [OM.PC] Routine 02/05/20 13:00 Sodium Chloride 0.9% [Normal Saline] 1,000 ml IV ASDIRECTED 02/05/20 14:45 Sodium Chloride 0.9% [Normal Saline] 1,000 ml IV ASDIRECTED Plan: Go home, rest, encourage fluids predominantly water or low sugar, low carbohydrate drinks. Prescription at [facility] pharmacy for the Zofran for nausea as needed You need to take it easy, avoid overexerting yourself. Continue all your medications as directed. In the event you develop a fever greater than 103 that does not improve/resolve with Tylenol, consideration for reevaluation could be given. Your laboratory analysis as well as x-ray show that this is still a viral component with no evidence of bacterial infection and it will take time to run its course. Recheck as needed.
[2020-02-05] MEDS ORDERED: Ondansetron 4 MG/2 ML SDV IVPUSH ONE (13:15)
--- NOTE | 2020-02-05 13:48 | CR ---
[id number] RAD/RAD Chest PA or AP 1V EXAM: SINGLE VIEW CHEST. INDICATION: VIRAL INFECTION COMPARISON: CORRELATION IS MADE WITH NOVEMBER 10, 2015 FINDINGS: There is borderline edema There is no sana infiltrate. The cardiac silhouette is stable IMPRESSION: BORDERLINE EDEMA Francis Kowalski MD 02/05/20 8500 Thank you for allowing us to participate in the care of your patient.
[2020-02-05 14:01] VITALS: PULSE 83
[2020-02-05 14:15] LABS: ANION GAP 17.1 mmol/L (5-15); CHLORIDE,CL 95 mmol/L (98-115); SODIUM,NA 133 mmol/L (136-145)
[2020-02-05] MEDS ORDERED: Acetaminophen 500 MG Tab PO ONE (16:08)
[2020-02-05] MEDS ORDERED: Acetaminophen 500 MG Tab ONE (16:09)
[2020-02-05 16:20] VITALS: BP 139/84
== END 2020-02-05 16:21 | disposition home or self-care (01) ==
LOC: KA.ED 12:41
DX: U07.1 COVID-19 (principal); E13.40 Other specified diabetes mellitus with diabetic neuropathy, unspecified; E87.1 Hypo-osmolality and hyponatremia; E87.8 Other disorders of electrolyte and fluid balance, not elsewhere classified; R74.8 Abnormal levels of other serum enzymes; I10 Essential (primary) hypertension; I25.10 Atherosclerotic heart disease of native coronary artery without angina pectoris; E78.00 Pure hypercholesterolemia, unspecified; M10.9 Gout, unspecified; F41.9 Anxiety disorder, unspecified; F32.9 Major depressive disorder, single episode, unspecified; D64.9 Anemia, unspecified; E66.9 Obesity, unspecified; Z68.35 Body mass index [BMI] 35.0-35.9, adult; Z79.4 Long term (current) use of insulin; Z79.899 Other long term (current) drug therapy
CPT/HCPCS: 36415; 71045; 80053; 83605; 84484; 85025; 85379; 93005; 96374; 99284; 99284-25; A9270-GY; J2405; J7030

== ENCOUNTER 2020-02-08 09:06 | Emergency (ER) | payer BC ==
[2020-02-08 09:13] VITALS: BP 122/68; PULSE 87
--- NOTE | 2020-02-08 09:19 | EDM.PDOC ---
ED HPI GENERAL MEDICAL PROBLEM - General Chief Complaint: General Stated Complaint: FEVER/COUGH/WEAKNESS Time Seen by Provider: 02/08/20 09:10 Source of Information: Reports: Patient - History of Present Illness INITIAL COMMENTS - FREE TEXT/NARRATIVE: Eamon, 64-year-old male, who is noted to be CPAP dependent with multiple comorbidities, presents via ambulance with worsening shortness of breath. Testing obtained on the january with positive results the . He is known to be Covid positive and was seen in the emergency department last Saturday where he received 2 L of IV fluid normal saline and was discharged home. He states over the weekend he has progressively worsened with weakness as well as breathing difficulty. He has been unable to monitor his glucose readings over the weekend but was 108 this morning upon ambulance arrival. There is noted worsening her oxygen saturation being in the low 80 range when he was home on room air and was placed on 10 L nonrebreather and at this time is in the low to mid 90s. He denies any pain but notes difficulty in respirations. He is unsure of the status of his temperature over the past few days but has felt warm with chills at times. Experiencing some constipation at this time as he has not had a bowel movement for 2 days, but also has noted that he has not been eating and drinking his normal consumption. - Related Data Allergies Allergy/AdvReac Type Severity Reaction Status Date / Time No Known Drug Allergies Allergy Cannot Verified 02/05/20 13:27 Remember Home Meds: Home Meds Aspirin [Halfprin] 81 mg PO BID 10/18/14 [History] Escitalopram [Lexapro] 10 mg PO DAILY 10/18/14 [History] Gabapentin 300 mg PO TID 10/18/14 [History] Insulin Aspart [NovoLOG] 15 unit SUBCUT ASDIRECTED 10/18/14 [History] Lovastatin 20 mg PO BEDTIME 10/18/14 [History] Niacin [Niacin ER] 1,000 mg PO BEDTIME 10/18/14 [History] Niacin [Niacin ER] 500 mg PO DAILY 10/18/14 [History] Omeprazole 20 mg PO DAILY 10/18/14 [History] Ferrous Sulfate [Iron] 324 mg PO DAILY 05/31/15 [History] Metoprolol Tartrate 12.5 mg PO BID 02/09/17 [History] Acetaminophen [Tylenol] 650 mg PO Q4H PRN 12/05/18 [History] Insulin Degludec [Tresiba] 60 unit SQ DAILY 12/05/18 [History] ALPRAZolam [Alprazolam] 0.25 mg PO TID PRN 04/13/19 [History] Hydrocodone/Acetaminophen [Hydrocodone-Acetamin 5-325 mg] 1 tab PO Q6H PRN 04/13/19 [History] allopurinoL [Zyloprim] 300 mg PO DAILY 04/13/19 [History] lisinopriL [Zestril] 2.5 mg PO DAILY 04/13/19 [History] Isosorbide Mononitrate [Imdur] 30 mg PO DAILY 02/05/20 [History] Ondansetron [Ondansetron ODT] 8 mg PO Q6H PRN 5 Days #20 tab.rapdis 02/05/20 [Rx] buPROPion HCL [Bupropion Xl] 150 mg PO DAILY 02/05/20 [History] Past Medical History HEENT History: Reports: Impaired Vision Cardiovascular History: Reports: Bypass, CAD, High Cholesterol, Hypertension, PVD, SOB on Exertion Respiratory History: Reports: Sleep Apnea Other Respiratory History: CPAP Gastrointestinal History: Reports: Colon Polyp, Hemorrhoids, Other (See Below) Other Gastrointestinal History: stomach ulcer. pre cancerous polyps removed Genitourinary History: Reports: BPH Musculoskeletal History: Reports: Back Pain, Chronic, Fracture, Gout Other Musculoskeletal History: Collar bone fx, left foot fx. 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 Hematologic History: Reports: Anemia Immunologic History: Reports: None Oncologic (Cancer) History: Reports: None Dermatologic History: Reports: None - Infectious Disease History Infectious Disease History: Reports: Chicken Pox, Measles, Mumps - Past Surgical History HEENT Surgical History: Reports: Oral Surgery Cardiovascular Surgical History: Reports: Coronary Artery Bypass, Vascular Surgery Respiratory Surgical History: Reports: None GI Surgical History: Reports: Cholecystectomy, Colonoscopy, EGD, Hernia Repair/Other Male Surgical History: Reports: Vasectomy Endocrine Surgical History: Reports: Adrenal Gland Other Endocrine Surgeries/Procedures: 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 ED EXAM, GENERAL - Physical Exam Exam: See Below Free Text/Narrative:: Alert, oriented with no cyanosis, mild pallor. HEENT is negative discharge or deformity with no noted tenderness. PERRLA with no icterus nor injection. Ocean moist mucous membranes with no erythema. Neck is soft and supple with no lymphadenopathy, no rigidity. Thorax is mildly diminished with scattered rhonchi. Cardiac is S1-S2 regular rate with apical rate correlating with radial pulses. Abdomen is rotund soft, bowel sounds present, no tenderness, no organomegaly appreciated. rectal is deferred. Lower extremities are free of edema capillary refill less than 3 seconds distally. #1 Interpretation EKG Date: 02/08/20 Time: 10:06 Rhythm: NSR Rate (Beats/Min): 83 [place]: LAD-Left [place] Deviation P-Wave: Present ST-T: Depressed QT: Prolonged Comparison: Change From Previous EKG Course - Vital Signs Last Recorded V/S: Last Vital Signs Temp 37.3 C 02/08/20 09:11 Pulse 87 02/08/20 09:11 Resp 28 H 02/08/20 09:11 BP 122/68 02/08/20 09:11 Pulse Ox 92 L 02/08/20 09:11 - Orders/Labs/Meds Orders: Active Orders 24 hr Category Date Time Status EKG Documentation Completion [RC] ASDIRECTED Care 02/08/20 09:21 Active Chest 1V Frontal [CR] Stat Exams 02/08/20 09:20 Ordered Sodium Chloride 0.9% [Normal Saline] 1,000 ml Med 02/08/20 10:30 Active IV ASDIRECTED EKG 12 Lead [EK] Urgent Ther 02/08/20 09:20 Ordered Medication Orders Sodium Chloride (Normal Saline) 1,000 mls @ 150 mls/hr IV ASDIRECTED MALENA Labs: Laboratory Tests 02/08/20 02/08/20 02/08/20 Range/Units 09:00 09:00 09:00 WBC (5.00-10.00) 10^3/uL RBC (4.50-6.00) 10^6/uL Hgb (13.0-17.0) g/dL Hct (40.0-52.0) % MCV (82.0-92.0) fL MCH (27.0-31.0) pg MCHC (32.0-36.0) g/dL RDW (11.5-14.5) % Plt Count (150-400) 10^3/uL MPV (7.4-10.4) fL Add Manual Diff Neutrophils % (Manual) (50-70) % Band Neutrophils % (4-12) % Lymphocytes % (Manual) (20-40) % Absolute Neutrophils Band Neutrophils # Lymphocytes # (Manual) D-Dimer, Quantitative 372 (<400) ng/mL Sodium 128 L (136-145) mmol/L Potassium 3.8 (3.3-5.3) mmol/L Chloride 94 L (98-115) mmol/L Carbon Dioxide 19.9 L (21.0-32.0) mmol/L Anion Gap 17.9 H (5-15) mmol/L BUN 22 (6-25) mg/dL Creatinine 1.12 (0.51-1.17) mg/dL Est Cr Clr Drug Dosing 66.63 mL/min Estimated GFR (MDRD) > 60 mL/min Glucose 111 H (75 - 99) mg/dL Lactic Acid 1.8 (0.4-2.0) mmol/L Calcium 8.4 L (8.7-10.3) mg/dL Total Bilirubin 0.5 (0.2-1.0) mg/dL AST 48 H (15-37) U/L ALT 22 (12-78) U/L Alkaline Phosphatase 60 (46-116) IU/L Troponin I < 0.04 (0.00-0.070) ng/mL Total Protein 7.2 (6.4-8.2) g/dL Albumin 2.84 L (3.00-4.80) g/dL 02/08/20 Range/Units 09:42 WBC 7.77 (5.00-10.00) 10^3/uL RBC 4.24 L (4.50-6.00) 10^6/uL Hgb 13.9 D (13.0-17.0) g/dL Hct 40.5 (40.0-52.0) % MCV 95.5 H (82.0-92.0) fL MCH 32.8 H (27.0-31.0) pg MCHC 34.3 (32.0-36.0) g/dL RDW 12.6 (11.5-14.5) % Plt Count 119 L (150-400) 10^3/uL MPV 10.0 (7.4-10.4) fL Add Manual Diff Yes Neutrophils % (Manual) 94 H (50-70) % Band Neutrophils % 2 L (4-12) % Lymphocytes % (Manual) 4 L (20-40) % Absolute Neutrophils 7.30 Band Neutrophils # 0.16 Lymphocytes # (Manual) 0.31 D-Dimer, Quantitative (<400) ng/mL Sodium (136-145) mmol/L Potassium (3.3-5.3) mmol/L Chloride (98-115) mmol/L Carbon Dioxide (21.0-32.0) mmol/L Anion Gap (5-15) mmol/L BUN (6-25) mg/dL Creatinine (0.51-1.17) mg/dL Est Cr Clr Drug Dosing mL/min Estimated GFR (MDRD) mL/min Glucose (75 - 99) mg/dL Lactic Acid (0.4-2.0) mmol/L Calcium (8.7-10.3) mg/dL Total Bilirubin (0.2-1.0) mg/dL AST (15-37) U/L ALT (12-78) U/L Alkaline Phosphatase (46-116) IU/L Troponin I (0.00-0.070) ng/mL Total Protein (6.4-8.2) g/dL Albumin (3.00-4.80) g/dL Meds: Medications Generic Name Dose Route Start Last Admin Trade Name Freq PRN Reason Stop Dose Admin Sodium Chloride 1,000 mls @ 150 mls/hr 02/08/20 10:30 Normal Saline IV ASDIRECTED MALENA Discontinued Medications Generic Name Dose Route Start Last Admin Trade Name Freq PRN Reason Stop Dose Admin Sodium Chloride 1,000 mls @ 999 mls/hr 02/08/20 09:20 11/16/20 09:20 Normal Saline IV 02/08/20 10:20 999 mls/hr .BOLUS ONE Administration - Radiology Interpretation Free Text/Narrative:: Opacities groundglass with sternal wires in EKG leads present. Cardiac silhouette upper limits with no recognizable acute CHF. Over read pending Departure - Departure Time of Disposition: 10:39 Disposition: DC/Tfer to [facility] Condition: Fair Clinical Impression: COVID-19 virus detected, Hyponatremia, Hypochloremia, Acute hypoxemic respiratory failure due to COVID-19 - Discharge Information *PRESCRIPTION DRUG MONITORING PROGRAM REVIEWED*: Not Applicable *COPY OF PRESCRIPTION DRUG MONITORING REPORT IN PATIENT LONNIE: Not Applicable Referrals: Aranza Henderson MD [Primary Care Provider] - Forms: ED Department Discharge, Interfacility Transfer [facility] Sepsis Event Note (ED) - Evaluation Sepsis Screening Result: Possible Sepsis Risk - Focused Exam Vital Signs: Vital Signs Temp Pulse Resp BP Pulse Ox 02/08/20 09:11 37.3 C 87 28 H 122/68 92 L ED Communication - ED Communication Date/Time Date: 02/08/20 Time Called: 10:38 - Discussed Case With (1) Discussed Case With (1): Admitting Provider (Dr. [facility] excepting to the emergency department) Person/s Notified (1): Sue Henderson Time Called: 10:35 - Conversation Summary Admitting Provider Agreed to Patient's Admission: Yes Cloth Tearer Accepted Inpatient Consultation: Yes - Problem List & Annotations (1) Acute hypoxemic respiratory failure due to COVID-19 SNOMED Code(s): 257067610 Code(s): U07.1 - COVID-19; J96.01 - ACUTE RESPIRATORY FAILURE WITH HYPOXIA Status: Acute Priority: High Current Visit: Yes (2) COVID-19 virus detected SNOMED Code(s): 2043366543760412 Code(s): U07.1 - COVID-19 Status: Acute Priority: High Current Visit: Yes (3) Diabetes 1.5, managed as type 2 SNOMED Code(s): 454826349 Code(s): E13.9 - OTHER SPECIFIED DIABETES MELLITUS WITHOUT COMPLICATIONS Status: Chronic Priority: High Current Visit: Yes (4) Hyponatremia SNOMED Code(s): 51344821 Code(s): E87.1 - HYPO-OSMOLALITY AND HYPONATREMIA Status: Chronic Priority: High Current Visit: Yes (5) Hypochloremia SNOMED Code(s): 01401454 Code(s): E87.8 - OTH DISORDERS OF ELECTROLYTE AND FLUID BALANCE, NEC Status: Chronic Priority: High Current Visit: Yes - Problem List Review Problem List Initiated/Reviewed/Updated: Yes - My Orders Last 24 Hours: My Active Orders 02/08/20 09:20 Chest 1V Frontal [CR] Stat EKG 12 Lead [EK] Urgent 02/08/20 09:21 EKG Documentation Completion [RC] ASDIRECTED 02/08/20 10:30 Sodium Chloride 0.9% [Normal Saline] 1,000 ml IV ASDIRECTED - Assessment/Plan Last 24 Hours: My Active Orders 02/08/20 09:20 Chest 1V Frontal [CR] Stat EKG 12 Lead [EK] Urgent 02/08/20 09:21 EKG Documentation Completion [RC] ASDIRECTED 02/08/20 10:30 Sodium Chloride 0.9% [Normal Saline] 1,000 ml IV ASDIRECTED Plan: Will be transferred via [facility] ambulance to [facility] emergency department.
[2020-02-08] MEDS: Sodium Chloride 0.9% 1,000 ML IV ONE (09:20)
[2020-02-08 10:01] LABS: ANION GAP 17.9 mmol/L (5-15); CHLORIDE,CL 94 mmol/L (98-115); SODIUM,NA 128 mmol/L (136-145)
[2020-02-08] MEDS: Sodium Chloride 0.9% 1,000 ML IV SCH (10:34)
--- NOTE | 2020-02-08 10:41 | CR ---
[id number] RAD/RAD Chest PA or AP 1V EXAM: RAD Chest PA or AP 1V INDICATION: COVID DESAT. COMPARISON: February 05, 2020. DISCUSSION: Median sternotomy wires. Cardiomediastinal silhouette is stable in size and contour. Again identified are patchy pulmonary infiltrates bilaterally, most pronounced in the left lung base. Central pulmonary vascular congestion. IMPRESSION: Patchy pulmonary infiltrates bilaterally, most pronounced at the left lung base. Overall these findings are not significantly changed when compared to the prior study. Deon Waters DO 02/08/20 1039 Thank you for allowing us to participate in the care of your patient.
== END 2020-02-08 11:15 ==
LOC: KA.ED 09:06
DX: U07.1 COVID-19 (principal); J96.01 Acute respiratory failure with hypoxia; E87.1 Hypo-osmolality and hyponatremia; E87.8 Other disorders of electrolyte and fluid balance, not elsewhere classified; I10 Essential (primary) hypertension; E78.00 Pure hypercholesterolemia, unspecified; E66.9 Obesity, unspecified; F41.9 Anxiety disorder, unspecified; F32.9 Major depressive disorder, single episode, unspecified; E11.40 Type 2 diabetes mellitus with diabetic neuropathy, unspecified; Z79.82 Long term (current) use of aspirin; Z79.4 Long term (current) use of insulin; Z79.899 Other long term (current) drug therapy; Z90.49 Acquired absence of other specified parts of digestive tract
CPT/HCPCS: 36415; 71045; 80053; 83605; 84484; 85025; 85379; 93005; 99284; 99285-25; J7030

== ENCOUNTER 2022-12-18 08:48 | Day surgery (SDC) | payer BC ==
[2022-12-18] MEDS ORDERED: Sodium Chloride 0.9% 1,000 ML IV SCH (09:00)
[2022-12-18] MEDS ORDERED: Sodium Chloride 0.9% 10 ML Syringe FLUSH PRN (09:00)
[2022-12-18] MEDS ORDERED: Midazolam 1 MG/ML 2 ML SDV ONE (09:51)
[2022-12-18] MEDS ORDERED: Propofol 200 MG/20 ML SDV ONE (09:51)
[2022-12-18 10:20] VITALS: PULSE 68
[2022-12-18 14:44] VITALS: BP 100/59
== END 2022-12-18 13:22 | disposition home or self-care (01) ==
LOC: KA.SDS 08:48
PROVIDERS: ATTEND Surgery
DX: Z12.11 Encounter for screening for malignant neoplasm of colon (principal); I25.10 Atherosclerotic heart disease of native coronary artery without angina pectoris; E11.9 Type 2 diabetes mellitus without complications; I10 Essential (primary) hypertension; Z86.010 Personal history of colon polyps
CPT/HCPCS: 00812; 45378; J2250; J2704; J7030

== ENCOUNTER 2023-01-15 07:44 | Day surgery (SDC) | payer BC ==
[2023-01-15] MEDS ORDERED: Propofol 200 MG/20 ML SDV IV ONE (07:45)
[2023-01-15] MEDS ORDERED: Sodium Chloride 0.9% 1,000 ML IV SCH (08:00)
[2023-01-15] MEDS ORDERED: Sodium Chloride 0.9% 10 ML Syringe FLUSH PRN (08:00)
[2023-01-15] MEDS ORDERED: Midazolam 1 MG/ML 2 ML SDV ONE (08:55)
[2023-01-15] MEDS ORDERED: Propofol 200 MG/20 ML SDV ONE ×2 (08:55→09:40)
[2023-01-15] MEDS ORDERED: Sodium Chloride 0.9% 1,000 ML ONE (09:42)
[2023-01-15 11:20] VITALS: BP 151/81; PULSE 57
== END 2023-01-15 11:34 | disposition home or self-care (01) ==
LOC: KA.SDS 07:44
PROVIDERS: ATTEND Surgery
DX: K62.89 Other specified diseases of anus and rectum (principal); K64.8 Other hemorrhoids; Q43.8 Other specified congenital malformations of intestine; F41.9 Anxiety disorder, unspecified; N40.0 Benign prostatic hyperplasia without lower urinary tract symptoms; I25.10 Atherosclerotic heart disease of native coronary artery without angina pectoris; G47.33 Obstructive sleep apnea (adult) (pediatric); E11.40 Type 2 diabetes mellitus with diabetic neuropathy, unspecified; F32.A Depression, unspecified; K21.9 Gastro-esophageal reflux disease without esophagitis; M10.9 Gout, unspecified; E78.00 Pure hypercholesterolemia, unspecified; Z86.010 Personal history of colon polyps; Z79.82 Long term (current) use of aspirin; Z79.4 Long term (current) use of insulin; Z79.02 Long term (current) use of antithrombotics/antiplatelets; Z79.899 Other long term (current) drug therapy; Z79.85 Long-term (current) use of injectable non-insulin antidiabetic drugs
CPT/HCPCS: 00811; 82947; J2250; J2704; J7030

== ENCOUNTER 2023-11-28 14:19 | Emergency (ER) | payer BC ==
[2023-11-28 14:49] VITALS: BP 125/77; PULSE 62
[2023-11-28 14:54] LABS: BASOPHILS ABSOLUTE AUTO 0.03 10^3/uL (0.00-0.10); BASOPHILS PERCENT AUTO 0.4 % (0.0-1.0); EOSINOPHILS ABSOLUTE AUTO 0.34 10^3/uL (0.10-0.30); EOSINOPHILS PERCENT AUTO 4.7 % (1.0-3.0); HEMATOCRIT 45.8 % (40.0-52.0); HEMOGLOBIN 15.7 g/dL (13.0-17.0); IMMATURE GRAN ABSOLUTE AUTO 0.01 10^3/uL (0.00-0.50); IMMATURE GRAN PERCENT AUTO 0.1 % (0.0-5.0); LYMPHOCYTES ABSOLUTE AUTO 1.24 10^3/uL (1.00-4.00); MEAN CORPUSCULAR HEMOGLOBIN 33.4 pg (27.0-31.0); MEAN CORPUSCULAR HGB CONC 34.3 g/dL (32.0-36.0); MEAN CORPUSCULAR VOLUME 97.4 fL (82.0-92.0); MEAN PLATELET VOLUME 9.2 fL (7.4-10.4); MONOCYTES ABSOLUTE AUTO 0.73 10^3/uL (0.10-0.80); NEUTROPHILS ABSOLUTE AUTO 4.94 10^3/uL (2.50-7.00); NEUTROPHILS PERCENT AUTO 67.8 % (50.0-70.0); PLATELET COUNT,PLT 176 10^3/uL (150-400); RED CELL DISTRIBUTION WIDTH 14.7 % (11.5-14.5); WHITE BLOOD CELL COUNT,WBC 7.29 10^3/uL (5.00-10.00)
[2023-11-28] MEDS: Sodium Chloride 0.9% 1,000 ML IV ONE (15:03)
[2023-11-28] MEDS: Ondansetron 4 MG/2 ML SDV IVPUSH ONE (15:04)
[2023-11-28 15:10] LABS: ALBUMIN 3.47 g/dL (3.40-5.00); ANION GAP 13.1 mmol/L (5-15); BILIRUBIN TOTAL 0.7 mg/dL (0.2-1.0); CALCIUM 8.9 mg/dL (8.7-10.3); CARBON DIOXIDE,CO2 28.1 mmol/L (21.0-32.0); CREATININE 1.41 mg/dL (0.51-1.17); EST CRCL DRUG DOSING (CG) 50.14 mL/min; POTASSIUM,K 4.2 mmol/L (3.5-5.1); PROTEIN TOTAL,TP 7.4 g/dL (6.4-8.2)
== END 2023-11-28 18:00 | disposition home or self-care (01) ==
LOC: KA.ED 14:19
DX: E11.649 Type 2 diabetes mellitus with hypoglycemia without coma (principal); R06.00 Dyspnea, unspecified; U09.9 Post COVID-19 condition, unspecified; I25.10 Atherosclerotic heart disease of native coronary artery without angina pectoris; E78.00 Pure hypercholesterolemia, unspecified; I10 Essential (primary) hypertension; E11.42 Type 2 diabetes mellitus with diabetic polyneuropathy; E66.9 Obesity, unspecified; Z79.4 Long term (current) use of insulin; Z79.899 Other long term (current) drug therapy
CPT/HCPCS: 36415; 70450; 71045; 80053; 82947; 83880; 84484; 85025; 93005; 93010; 96361; 96374; 99284; 99285-25; J2405; J7030

== ENCOUNTER 2024-08-12 13:07 | Inpatient (IN) | payer BC, MEDICARE ==
[2024-08-12] MEDS ORDERED: Sodium Chloride 0.9% 10 ML Syringe FLUSH PRN (13:42)
[2024-08-12 13:46] LABS: BASOPHILS ABSOLUTE AUTO 0.04 10^3/uL (0.00-0.10); BASOPHILS PERCENT AUTO 0.5 % (0.0-1.0); EOSINOPHILS ABSOLUTE AUTO 0.28 10^3/uL (0.10-0.30); EOSINOPHILS PERCENT AUTO 3.6 % (1.0-3.0); HEMATOCRIT 46.7 % (40.0-52.0); HEMOGLOBIN 15.8 g/dL (13.0-17.0); IMMATURE GRAN ABSOLUTE AUTO 0.02 10^3/uL (0.00-0.04); IMMATURE GRAN PERCENT AUTO 0.3 % (0.0-0.4); MEAN CORPUSCULAR HEMOGLOBIN 33.3 pg (27.0-31.0); MEAN CORPUSCULAR HGB CONC 33.8 g/dL (32.0-36.0); MEAN CORPUSCULAR VOLUME 98.5 fL (82.0-92.0); MEAN PLATELET VOLUME 9.4 fL (7.4-10.4); MONOCYTES ABSOLUTE AUTO 0.66 10^3/uL (0.10-0.80); MONOCYTES PERCENT AUTO 8.6 % (2.0-8.0); PLATELET COUNT,PLT 166 10^3/uL (150-400); RED BLOOD CELL COUNT 4.74 10^6/uL (4.50-6.00); RED CELL DISTRIBUTION WIDTH 14.3 % (11.5-14.5)
[2024-08-12] MEDS: Sodium Chloride 0.9% 1,000 ML IV ONE (13:56)
[2024-08-12 14:04] LABS: ALBUMIN 3.48 g/dL (3.40-5.00); ANION GAP 13.7 mmol/L (5-15); BILIRUBIN TOTAL 0.7 mg/dL (0.2-1.0); CARBON DIOXIDE,CO2 25.7 mmol/L (21.0-32.0); CREATININE 1.34 mg/dL (0.51-1.17); EST CRCL DRUG DOSING (CG) 52.03 mL/min; POTASSIUM,K 4.4 mmol/L (3.5-5.1); PROTEIN TOTAL,TP 7.4 g/dL (6.4-8.2)
[2024-08-12] MEDS: Albuterol/Ipratropium 3.0-0.5 MG/3 ML Neb Soln NEB ONE (14:27)
[2024-08-12] MEDS ORDERED: Sodium Chloride 0.9% 100 ML IV SCH (16:30)
[2024-08-12] MEDS: methylPREDNISolone Sodium Succinate 40 MG/1 ML SDV IVPUSH ONE (16:37)
[2024-08-12] MEDS: Azithromycin 500 MG in Sodium Chloride 0.9% 250 ML IV SCH (16:38)
[2024-08-12] MEDS ORDERED: Nitroglycerin 0.4 MG Tab.SL SL PRN (17:06)
[2024-08-12] MEDS ORDERED: ALPRAZolam 0.25 MG Tab PO PRN (17:06)
[2024-08-12] MEDS ORDERED: Acetaminophen 325 MG Tab PO PRN (17:06)
[2024-08-12] MEDS ORDERED: Polyethylene Glycol 3350 Powder 17 GM Packet PO PRN (17:06)
[2024-08-12] MEDS ORDERED: Cyclobenzaprine 10 MG Tab PO PRN (17:06)
[2024-08-12] MEDS ORDERED: Glucose Gel 15 GM in 37.5 GM Tube PO PRN (17:10)
[2024-08-12] MEDS ORDERED: 50% Dextrose in Water 50 ML Syringe IVPUSH PRN (17:10)
[2024-08-12] MEDS ORDERED: Glucagon,Human Recombinant 1 MG Vial IM PRN (17:10)
[2024-08-12] MEDS: Isosorbide Mononitrate 30 MG Tab.ER PO SCH (18:03)
[2024-08-12] MEDS: Insulin Lispro 100 Unit/ML 3 ML KwikPen SUBCUT SCH (18:04)
[2024-08-12] MEDS: Gabapentin 300 MG Cap PO SCH (21:23)
[2024-08-12] MEDS: atorvaSTATin 10 MG Tab PO SCH (21:23)
[2024-08-12] MEDS: Metoprolol Succinate 50 MG Tab.ER PO SCH (21:24)
[2024-08-12] MEDS: Diclofenac Sodium 1% Gel 100 GM Tube TOP SCH (21:28)
[2024-08-12] MEDS: INSULIN DEGLUDEC 200 UNIT/ML SUBCUT SCH (21:28)
[2024-08-12] MEDS: RANOLAZINE 1000 MG PO SCH (21:41)
[2024-08-13] MEDS: Omeprazole 20 MG Cap.CR PO SCH (06:08)
[2024-08-13 07:04] LABS: BASOPHILS ABSOLUTE AUTO 0.01 10^3/uL (0.00-0.10); BASOPHILS PERCENT AUTO 0.1 % (0.0-1.0); HEMATOCRIT 48.2 % (40.0-52.0); HEMOGLOBIN 16.1 g/dL (13.0-17.0); IMMATURE GRAN ABSOLUTE AUTO 0.02 10^3/uL (0.00-0.04); IMMATURE GRAN PERCENT AUTO 0.2 % (0.0-0.4); LYMPHOCYTES PERCENT AUTO 6.3 % (20.0-40.0); MEAN CORPUSCULAR HGB CONC 33.4 g/dL (32.0-36.0); MEAN CORPUSCULAR VOLUME 98.8 fL (82.0-92.0); MEAN PLATELET VOLUME 9.3 fL (7.4-10.4); MONOCYTES PERCENT AUTO 2.1 % (2.0-8.0); NEUTROPHILS ABSOLUTE AUTO 8.67 10^3/uL (2.50-7.00); NEUTROPHILS PERCENT AUTO 91.3 % (50.0-70.0); PLATELET COUNT,PLT 171 10^3/uL (150-400); RED BLOOD CELL COUNT 4.88 10^6/uL (4.50-6.00); RED CELL DISTRIBUTION WIDTH 14.3 % (11.5-14.5)
[2024-08-13 07:20] LABS: ALBUMIN 3.03 g/dL (3.40-5.00); ANION GAP 12.2 mmol/L (5-15); BILIRUBIN TOTAL 0.5 mg/dL (0.2-1.0); CALCIUM 8.8 mg/dL (8.7-10.3); CARBON DIOXIDE,CO2 27.9 mmol/L (21.0-32.0); CREATININE 1.26 mg/dL (0.51-1.17); EST CRCL DRUG DOSING (CG) 55.33 mL/min; POTASSIUM,K 5.1 mmol/L (3.5-5.1); PROTEIN TOTAL,TP 6.9 g/dL (6.4-8.2)
[2024-08-13] MEDS: Escitalopram 10 MG Tab PO SCH (07:59)
[2024-08-13] MEDS: Sennosides/Docusate Sodium 50-8.6 MG Tab PO SCH (07:59)
[2024-08-13] MEDS: Allopurinol 100 MG Tab PO SCH (07:59)
[2024-08-13] MEDS: Empagliflozin [Jardiance] 25 MG Tablet *PT OWN MED PO SCH (07:59)
[2024-08-13] MEDS: Aspirin 81 MG Tab.EC PO SCH (07:59)
[2024-08-13] MEDS: methylPREDNISolone Sodium Succinate 40 MG/1 ML SDV IVPUSH SCH (07:59)
[2024-08-13] MEDS: Clopidogrel 75 MG Tab PO SCH (08:00)
[2024-08-13] MEDS ORDERED: Non-Formulary Medication 1 Each (Escitalopram Oxalate [Lexapro] 20 MG Tablet) PO SCH (09:00)
[2024-08-13] MEDS ORDERED: Diclofenac Sodium 1% Gel 100 GM Tube TOP PRN (09:52)
[2024-08-13] MEDS: Furosemide 40 MG/4 ML VIAL IVPUSH ONE (09:54)
[2024-08-13] MEDS: Albuterol/Ipratropium 3.0-0.5 MG/3 ML Neb Soln NEB PRN (09:55)
[2024-08-14 07:36] LABS: BASOPHILS ABSOLUTE AUTO 0.01 10^3/uL (0.00-0.10); BASOPHILS PERCENT AUTO 0.1 % (0.0-1.0); HEMATOCRIT 49.1 % (40.0-52.0); HEMOGLOBIN 16.7 g/dL (13.0-17.0); IMMATURE GRAN ABSOLUTE AUTO 0.02 10^3/uL (0.00-0.04); IMMATURE GRAN PERCENT AUTO 0.1 % (0.0-0.4); LYMPHOCYTES ABSOLUTE AUTO 0.77 10^3/uL (1.00-4.00); LYMPHOCYTES PERCENT AUTO 5.7 % (20.0-40.0); MEAN CORPUSCULAR HEMOGLOBIN 33.8 pg (27.0-31.0); MEAN CORPUSCULAR VOLUME 99.4 fL (82.0-92.0); MEAN PLATELET VOLUME 9.3 fL (7.4-10.4); MONOCYTES ABSOLUTE AUTO 0.58 10^3/uL (0.10-0.80); MONOCYTES PERCENT AUTO 4.3 % (2.0-8.0); NEUTROPHILS ABSOLUTE AUTO 12.08 10^3/uL (2.50-7.00); NEUTROPHILS PERCENT AUTO 89.8 % (50.0-70.0); PLATELET COUNT,PLT 187 10^3/uL (150-400); RED BLOOD CELL COUNT 4.94 10^6/uL (4.50-6.00); RED CELL DISTRIBUTION WIDTH 14.4 % (11.5-14.5); WHITE BLOOD CELL COUNT,WBC 13.46 10^3/uL (5.00-10.00)
[2024-08-14 07:53] LABS: ALBUMIN 3.2 g/dL (3.40-5.00); ANION GAP 10.2 mmol/L (5-15); BILIRUBIN TOTAL 0.5 mg/dL (0.2-1.0); CALCIUM 9.4 mg/dL (8.7-10.3); CARBON DIOXIDE,CO2 29.6 mmol/L (21.0-32.0); CREATININE 1.31 mg/dL (0.51-1.17); EST CRCL DRUG DOSING (CG) 53.22 mL/min; POTASSIUM,K 4.8 mmol/L (3.5-5.1); PROTEIN TOTAL,TP 7.1 g/dL (6.4-8.2)
[2024-08-14] MEDS: Azithromycin 500 MG in Sodium Chloride 0.9% 250 ML IV SCH (10:31)
[2024-08-14 12:50] VITALS: BP 113/68; PULSE 70
== END 2024-08-14 12:55 | disposition home or self-care (01) | DRG 133 ==
LOC: KA.ED 13:07 → KA.MS 14:54
PROVIDERS: ADMIT Internal Medicine; ATTEND Internal Medicine
DX: J96.01 Acute respiratory failure with hypoxia (principal); J44.1 Chronic obstructive pulmonary disease with (acute) exacerbation; J40 Bronchitis, not specified as acute or chronic; Z93.0 Tracheostomy status; I25.10 Atherosclerotic heart disease of native coronary artery without angina pectoris; E78.00 Pure hypercholesterolemia, unspecified; E11.51 Type 2 diabetes mellitus with diabetic peripheral angiopathy without gangrene; I10 Essential (primary) hypertension; G47.33 Obstructive sleep apnea (adult) (pediatric); K21.9 Gastro-esophageal reflux disease without esophagitis; N40.0 Benign prostatic hyperplasia without lower urinary tract symptoms; F32.A Depression, unspecified; D64.9 Anemia, unspecified; Z90.49 Acquired absence of other specified parts of digestive tract; Z79.4 Long term (current) use of insulin; Z86.16 Personal history of COVID-19; Z95.1 Presence of aortocoronary bypass graft
CPT/HCPCS: 36415; 71045; 80053; 82947; 83605; 83880; 84484; 85025; 85379; 94640; 96360; 99285-25; A9270-GY; J0456; J1815-GY; J1938; J2919; J7030; Q3014